=== PATIENT | female | born 1945 | race Caucasian/White ===

== ENCOUNTER 2025-04-02 21:57 | Inpatient (IN) ==
--- NOTE | 2025-04-02 22:19 | Emergency Department Note ---
Impression & Plan Dizziness, Diarrhea, Nausea & vomiting, Hyperglycemia, Hypoxia ED Provider Note ED Provider Note NAME: ANGELA KHANNA AGE:79 SEX: Female : 1945 ARRIVES VIA: EMS INFORMANT: Patient, EMS ED PROVIDER(s): Andressa England DO CHIEF COMPLAINT: Dizziness, nausea and vomiting HPI: This is an 79-year-old female who presents to the emergency department via EMS due to concern for dizziness along with nausea and vomiting. Patient states symptoms began earlier today. She denies any accompanying headache, blurred vision, fevers or chills. She states she has had minimal vomiting and it is mostly dry heaves. She denies any abdominal pain, chest pain, or difficulty breathing. She denies any known sick contacts. She states she takes no medications. She denies any change in recent bowel movements or with urination. EMS reported upon their arrival patient seemed flustered and scattered approximately down to her apartment, and they noted emesis and stool on the couch. Denies any recent illness or URI symptoms. She denies overt "spinning" but states she felt lightheaded and off balance. PAST MEDICAL HISTORY:See Below PAST SURGICAL HISTORY:See Below FAMILY HISTORY:See Below SOCIAL HISTORY:See Below HOME MEDICATIONS:See Below ALLERGIES:See Below VITALS:See Below PHYSICAL EXAMINATION: GENERAL: alert, well appearing, well nourished, no distress, non-toxic EYE EXAM: normal conjunctiva, PERRL and EOM's grossly intact, no nystagmus OROPHARYNX: no exudate, no erythema, lips, buccal mucosa, and tongue normal and mucous membranes are dry NECK: supple, no nuchal rigidity, no adenopathy, non-tender LUNGS: Decreased to auscultation. Normal chest wall mechanics, no w/r, coarse breath sounds b/l, worse in upper lobs HEART: no murmurs, S1 normal and S2 normal ABDOMEN: abdomen soft, non-tender, normo-active bowel sounds, no masses, no rebound or guarding. BACK: Back is symmetrical on inspection and there is no deformity, no midline tenderness SKIN: no rashes, petechiae, orbruising UPPER EXTREMITIES: upper extremities are grossly normal. FROM, nml pulses b/l. LOWER EXTREMITIES: No pitting edema. FROM, nml pulses b/l. NEURO EXAM: Normal sensorium, cranial nerves II-XII grossly intact, normal speech, no facial droop,nogross weakness of arms, no gross weakness of legs. Gross sensation intact. No ataxia. Vital Signs: reviewed and remarkable Differential Diagnosis: benign positional vertigo, dehydration, hypovolemia, anemia, tumor, hypoglycemia, electrolyte abnormalities, ICH, CVA, dysrhythmia, as well as others were entertained. MEDICAL DECISION MAKING: This is an 79-year-old female presents emergency department due to concern for dizziness, vomiting, diarrhea. She was afebrile and hemodynamically stable on arrival. She had a normal nonfocal neuroexam. Labs drawn and sent, IV established, EKG and CXR performed and interpreted at bedside, and patient placed on telemetry. Patient started on IV fluids and given IV Zofran for nausea. She did have slightly coarse breath sounds noted and is a former smoker, she was given a DuoNeb treatment additionally. Patient reported improvement in her nausea and dizziness with interventions here. Patient was noted to be mildly hypoxic into the upper 80s even after breathing treatment. She denied any recent URI symptoms. Given no obvious etiology with a negative chest x-ray and reassuring labs, and concern for likely underlying COPD given history of tobacco abuse, case discussed with the hospitalist team for further evaluation and management. Patient's other labs otherwise reassuring, no leukocytosis, no evidence of ANDREA, no significant electrolyte abnormalities. Patient denied any accompanying chest pain, EKG without any concerning findings. I do not suspect occult cardiac etiology of her symptoms at this time. I do not suspect occult HAT MARKER pathology such as CVA or ICH. Consultation(s): 0050: Discussed with Dr. Holley, [facility] hospitalist team, for additional evaluation and mgmt. ER Treatment Provided: See below Diagnostics Interpreted By Me: -ECG: Normal sinus at 91, first-degree AV block, leftward axis, normal intervals, nonspecific ST/T wave changes -Cardiac Monitoring: An order was placed for continuous cardiac monitoring. The monitor shows a rate of 96 with normal sinus rhythm. -Laboratory studies: As stated above and show below. -Imaging studies: X-ray Chest: A single view study of the chest was reviewed and was negative for cardiomegaly, focal infiltrate, effusion, pulmonary edema, or wide mediastinum. Triage Nursing Note Reviewed Prior/Outside Records Reviewed Past Med/Surg History Problem List (Updated 04/03/25 @ 00:42 by Andressa England DO) Hypoxia (Acute) Hyperglycemia (Acute) Nausea & vomiting (Acute) Diarrhea (Acute) Dizziness (Acute) Medical History No pertinent family history No pertinent past medical history Surgical History No pertinent past surgical history Social History Smoking Status: Former smoker Tobacco Type: Cigarettes Second Hand Exposure: No; Do You Dip or Chew Tobacco: No; Tobacco Cessation Education Requested by Patient: No Hx Alcohol Use: No Hx Substance Use: No Preferred Language: Divehi Communication Ability: Effective Rink Rat Required: No Beliefs That Will Affect Care: None Current Living Situation: Alone Other Information That Helps Us Care for You: No Feels Safe at Home: Yes Safety Concerns: Feels Safe At This Time Assistive Devices: Denture - Upper, Denture - Lower and Glasses Allergies Allergies Allergy/AdvReac Type Severity Reaction Status Date / Time No Known Allergies Allergy Unverified 04/03/25 04:04 Results & Data (ED) Vital Signs Vital Signs - 24 hr 04/03/25 00:00 04/03/25 01:00 Pulse Rate [Apical] 87 95 H Pulse Rhythm [Apical] Regular Pulse Strength [Apical] Normal Respiratory Rate 18 12 Respiratory Effort / Characteristics Non-Labored Spontaneous Non-Labored Respiratory Depth Normal Normal Respiratory Pattern Regular Regular Blood Pressure [Right Arm] 161/98 H 134/97 Blood Pressure Mean [Right Arm] 119 109 Blood Pressure Position [Right Arm] Lying Pulse Oximetry 100 95 Oxygen Delivery Method Nebulizer Nasal Cannula Oxygen Flow Rate 2 Laboratory Data 04/03/25 07:09 04/03/25 07:09 Lab Results 04/02/25 04/02/25 04/02/25 Range/Units 22:01 22:06 23:34 WBC 8.04 (4.8-10.8) K/ul RBC 3.96 L (4.20-5.40) M/uL Hgb 12.7 (12.0-16.0) g/dl POC Hgb 13.9 (12.0-16.0) g/dl Hct 40.3 (37.0-47.0) % POC Hct 41 (37-47) % MCV 101.8 H (80.0-100.0) fL MCH 32.1 (25.0-34.0) pg MCHC 31.5 L (32.0-36.0) g/dL RDW Std Deviation 53.4 H (36.4-46.3) fL RDW Coeff of Deloris 14.2 (11.5-14.5) % Plt Count 206 (130-400) K/uL MPV 10.8 (9.4-12.4) fL Immature Gran % (Auto) 0.5 % Neut % (Auto) 71.4 % Lymph % (Auto) 18.7 % [place] % (Auto) 7.3 % Eos % (Auto) 1.7 % Baso % (Auto) 0.4 % Neut # (Auto) 5.74 (1.40-6.50) K/uL Lymph # (Auto) 1.50 (1.20-3.40) K/uL [place] # (Auto) 0.59 (0.11-0.59) K/uL Eos # (Auto) 0.14 (0.00-0.50) K/uL Baso # (Auto) 0.03 (0.00-0.20) K/uL Immature Gran # (Auto) 0.04 (0.01-0.20) K/uL PT 11.1 (9.0-12.0) Seconds INR 1.1 (0.9-1.1) POC Sodium 138 (135-144) mmol/L Sodium 137 (136-145) mmol/L POC Potassium 3.5 (3.3-5.0) mmol/L Potassium 3.6 (3.5-5.1) mmol/L POC Chloride 99 L (101-112) mmol/L Chloride 100 (98-107) mmol/L Carbon Dioxide 27 (21-32) mmol/L POC Total CO2 25 (24-31) mmol/L Anion Gap 10 (3-11) POC Anion Gap 19.0 (16-25) mmol/L POC BUN 17 (7-18) mg/dl BUN 18 (6-23) mg/dl Creatinine 0.88 (0.6-1.2) mg/dl POC Creatinine 1.0 (0.6-1.3) mg/dl Est Cr Clr Drug Dosing 40.4 ml/min eGFR 65.98 BUN/Creatinine Ratio 20.5 H (10-20) Glucose 199 H (70-99(Fasting)) mg/dl POC Glucose (other) 197 H (70-99) mg/dl Calcium 9.3 (8.6-10.3) mg/dl POC Ioniz Calcium Lou 1.13 (1.12-1.32) mmol/l Magnesium 1.8 (1.7-2.4) mg/dl Total Bilirubin 0.6 (0.2-1.0) mg/dl AST 20 (13-39) U/L ALT 12 (7-52) U/L Alkaline Phosphatase 117 H (34-104) U/L Troponin I High Sens 5.9 (0-14) pg/ml Total Protein 7.5 (6.0-8.3) gm/dl Albumin 3.8 (3.4-5.0) gm/dl Globulin 3.7 (2.5-4.0) gm/dl Albumin/Globulin Ratio 1.0 (0.9-2) TSH 2.516 (0.300-4.500) uIu/ml Adenovirus (PCR) Not Detected (NotDetected) B. pertussis DNA (PCR) Not Detected (NotDetected) B.parapertussis DNA PCR Not Detected (NotDetected) C. pneumoniae DNA (PCR) Not Detected (NotDetected) Coronavirus OC43 (PCR) Not Detected (NotDetected) Coronavirus HKU1 (PCR) Not Detected (NotDetected) Coronavirus 229E (PCR) Not Detected (NotDetected) SARS-CoV-2 (PCR) Not Detected (NotDetected) Coronavirus NL63 (PCR) Not Detected (NotDetected) Human Metapneumovir PCR Not Detected (NotDetected) Influenza Type A (PCR) Not Detected (NotDetected) Influenza Type B (PCR) Not Detected (NotDetected) M. pneumoniae (PCR) Not Detected (NotDetected) Parainfluenza 1 (PCR) Not Detected (NotDetected) Parainfluenza 2 (PCR) Not Detected (NotDetected) Parainfluenza 3 (PCR) Not Detected (NotDetected) Parainfluenza 4 (PCR) Not Detected (NotDetected) RSV (PCR) Not Detected (NotDetected) Entero/Rhino (PCR) Not Detected (NotDetected) Administered Medications Albuterol (Albut/Ipratrop 3mg/0.5mg Neb 3 Ml Vial) 3 ml NEB QIDR RITA; Protocol Stop: 05/03/25 06:59 Last Admin: 04/03/25 19:37 Dose: 3 ml Documented By: Admin: 04/03/25 14:59 Dose: 3 ml Documented By: Admin: 04/03/25 11:47 Dose: 3 ml Documented By: Admin: 04/03/25 07:29 Dose: 3 ml Documented By: TIFFANIE Heparin Sodium (Porcine) (Heparin Sod 5,000 Unit/0.5 Ml Vial) 5,000 units SQ Q12 RITA Stop: 05/03/25 08:59 Last Admin: 04/03/25 20:25 Dose: 5,000 units Documented By: massimo Admin: 04/03/25 09:50 Dose: 5,000 units Documented By: DIVINA Ondansetron HCl (Ondansetron Inj 2 Mg/Ml 2 Ml Vial) 4 mg IV Q6H PRN PRN Reason: Nausea Stop: 05/03/25 03:50 Last Admin: 04/03/25 18:19 Dose: 4 mg Documented By: DIVINA Discontinued Medications Albuterol (Albut/Ipratrop 3mg/0.5mg Neb 3 Ml Vial) 3 ml NEB NOW STA; Protocol Stop: 04/02/25 23:44 Last Admin: 04/03/25 00:06 Dose: 3 ml Documented By: BRITTANY Sodium Chloride (Nss) 1,000 mls @ 125 mls/hr IV .Q8H RITA Stop: 04/05/25 22:14 Last Infusion: 04/03/25 03:50 Dose: Infused Documented By: faisal Admin: 04/02/25 22:23 Dose: 125 mls/hr Documented By: EDUARDO Sodium Chloride (Nss) 1,000 mls @ 80 mls/hr IV .[id number] [facility] Stop: 04/03/25 16:20 Last Infusion: 04/03/25 10:03 Dose: Infused Documented By: Admin: 04/03/25 04:20 Dose: 80 mls/hr Documented By: faisal Ioversol (Optiray 320 125ml) 112 ml IV ONCE ONE Stop: 04/03/25 11:22 Last Admin: 04/03/25 11:21 Dose: 112 ml Documented By: TED Lorazepam (Lorazepam 0.5 Mg Tab) 0.25 mg PO NOW STA Stop: 04/03/25 03:57 Last Admin: 04/03/25 04:19 Dose: 0.25 mg Documented By: faisal Miscellaneous Information (Patient's Allergy Info Needs Entered) 1 each N/A Q30M STA Stop: 04/03/25 03:53 Last Admin: 04/03/25 04:07 Dose: 1 each Documented By: faisal Ondansetron HCl (Ondansetron Inj 2 Mg/Ml 2 Ml Vial) 4 mg IV NOW STA Stop: 04/02/25 22:08 Last Admin: 04/02/25 22:26 Dose: 4 mg Documented By: EMB Imaging Data Radiologist's Impression: Chest X-Ray 04/02/25 22:07 Exam(s): XR CXR 1 VIEW EXAM: XR Chest, 1 View CLINICAL HISTORY: Reason for exam: cough. TECHNIQUE: Frontal view of the chest. COMPARISON: No relevant prior studies available. FINDINGS: There is a poor inspiratory effort. Lungs: There is prominence of the interstitial markings.. Pleural space: No pleural effusion is noted.. No pneumothorax. Heart: The heart is top normal in size.. Mediastinum: There is uncoiling of thoracic aorta.. Bones/joints: There are degenerative changes in the spine.. IMPRESSION: Poor inspiratory effort. There is prominence of the interstitial markings which may be chronic in nature. Recommend old film comparison. Electronically signed by: Rosalino Melissa MD 04/02/25 23:[address] 04/02/25 22:07 Exam(s): CT HEAD Without Contrast EXAM: CT Head Without Intravenous Contrast CLINICAL HISTORY: Reason for exam: dizzy, nausea/vomiting. TECHNIQUE: Axial computed tomography images of the head/brain without intravenous contrast. CTDI is 61.99 mGy and DLP is 961.59 mGy-cm. Automated exposure control was utilized for the study. A dose lowering technique was utilized adhering to the principles of ALARA. COMPARISON: No relevant prior studies available. FINDINGS: Brain: No acute intracranial hemorrhage There is decreased attenuation within the white matter.. Ventricles: There is prominence of the ventricular system with deepening of the sulci consistent with cortical and central atrophy. Bones/joints: Unremarkable. No acute fracture. Soft tissues: Unremarkable. Sinuses: Unremarkable as visualized. No acute sinusitis. Mastoid air cells: Unremarkable as visualized. No mastoid effusion. IMPRESSION: Atrophy. Nonspecific white matter disease. If further evaluation is clinically necessary, consider correlation with MRI Electronically signed by: Rosalino Melissa MD 04/02/25 23:30 PM Discharge Plan Visit Data Chief Complaint: Dizziness Stated Complaint: Dizziness, nausea ED Provider: Andressa England Discharge Problem: Dizziness, Diarrhea, Nausea & vomiting, Hyperglycemia, Hypoxia Patient Disposition: Admitted As Inpatient Condition: Fair Discharge Instructions Interventions: ED Discharge Assessment Last Done: 04/03/25 03:30
[2025-04-02] MEDS: SODIUM CHLORIDE 0.9% 1,000 ML IV SCH (22:23)
[2025-04-02] MEDS: ONDANSETRON INJ 2 MG/ML 2 ML VIAL IV STA (22:26)
[2025-04-02 22:28] LABS: Hematocrit (blood only) 40.3 % (37.0-47.0); Hemoglobin 12.7 g/dl (12.0-16.0); Immature Granulocytes # (auto) 0.04 K/uL (0.01-0.20); Immature Granulocytes % (auto) 0.5 %; Mean Corpuscular Hemoglobin 32.1 pg (25.0-34.0); Mean Corpuscular Volume 101.8 fL (80.0-100.0); Platelet Count 206 K/uL (130-400); RDW Standard Deviation 53.4 fL (36.4-46.3); Red Blood Count 3.96 M/uL (4.20-5.40); White Blood Count 8.04 K/ul (4.8-10.8)
[2025-04-02 22:44] LABS: Alanine Aminotransferase 12.0 U/L (7-52); Albumin Globulin Ratio 1.0 (0.9-2); Albumin Level 3.8 gm/dl (3.4-5.0); Alkaline Phosphatase 117.0 U/L (34-104); Anion Gap 10.0 (3-11); Bilirubin,Total 0.6 mg/dl (0.2-1.0); Blood Urea Nitrogen 18.0 mg/dl (6-23); Calcium 9.3 mg/dl (8.6-10.3); Carbon Dioxide 27.0 mmol/L (21-32); Chloride 100.0 mmol/L (98-107); Creatinine Clr Calc Pharmacy 40.4 ml/min; Globulin 3.7 gm/dl (2.5-4.0); Glucose 199.0 mg/dl (70-99(Fasting)); Magnesium 1.8 mg/dl (1.7-2.4); Potassium 3.6 mmol/L (3.5-5.1); Sodium 137.0 mmol/L (136-145); Total Protein 7.5 gm/dl (6.0-8.3)
[2025-04-02 23:01] LABS: Thyroid Stimulating Hormone 2.516 uIu/ml (0.300-4.500)
[2025-04-02 23:27] LABS: INR 1.1 (0.9-1.1); Prothrombin Time 11.1 Seconds (9.0-12.0)
--- NOTE | 2025-04-02 23:29 | XRay Report ---
Exam(s): XR CXR 1 VIEW EXAM: XR Chest, 1 View CLINICAL HISTORY: Reason for exam: cough. TECHNIQUE: Frontal view of the chest. COMPARISON: No relevant prior studies available. FINDINGS: There is a poor inspiratory effort. Lungs: There is prominence of the interstitial markings.. Pleural space: No pleural effusion is noted.. No pneumothorax. Heart: The heart is top normal in size.. Mediastinum: There is uncoiling of thoracic aorta.. Bones/joints: There are degenerative changes in the spine.. IMPRESSION: Poor inspiratory effort. There is prominence of the interstitial markings which may be chronic in nature. Recommend old film comparison. Electronically signed by: Rosalino Melissa MD 04/02/25 23:27 PM
--- NOTE | 2025-04-02 23:31 | CT Scan Report ---
Exam(s): CT HEAD Without Contrast EXAM: CT Head Without Intravenous Contrast CLINICAL HISTORY: Reason for exam: dizzy, nausea/vomiting. TECHNIQUE: Axial computed tomography images of the head/brain without intravenous contrast. CTDI is 61.99 mGy and DLP is 961.59 mGy-cm. Automated exposure control was utilized for the study. A dose lowering technique was utilized adhering to the principles of ALARA. COMPARISON: No relevant prior studies available. FINDINGS: Brain: No acute intracranial hemorrhage There is decreased attenuation within the white matter.. Ventricles: There is prominence of the ventricular system with deepening of the sulci consistent with cortical and central atrophy. Bones/joints: Unremarkable. No acute fracture. Soft tissues: Unremarkable. Sinuses: Unremarkable as visualized. No acute sinusitis. Mastoid air cells: Unremarkable as visualized. No mastoid effusion. IMPRESSION: Atrophy. Nonspecific white matter disease. If further evaluation is clinically necessary, consider correlation with MRI Electronically signed by: Rosalino Melissa MD 04/02/25 23:30 PM
[2025-04-03] MEDS: ALBUT/IPRATROP 3MG/0.5MG NEB 3 ML VIAL NEB STA (00:06)
[2025-04-03 00:30] LABS: Chlamydia pneumoniae PCR Not Detected (NotDetected); Coronavirus 229E PCR Not Detected (NotDetected); Coronavirus CoV-2 (COVID19)PCR Not Detected (NotDetected); Coronavirus HKU1 PCR Not Detected (NotDetected); Coronavirus NL63 PCR Not Detected (NotDetected); Coronavirus OC43PCR Not Detected (NotDetected); Human Metapneumovirus PCR Not Detected (NotDetected); Parainfluenza Virus 1 PCR Not Detected (NotDetected); Parainfluenza Virus 2 PCR Not Detected (NotDetected); Parainfluenza Virus 3 PCR Not Detected (NotDetected); Parainfluenza Virus 4 PCR Not Detected (NotDetected); Respiratory Syncytial VirusPCR Not Detected (NotDetected); Rhinovirus/Enterovirus PCR Not Detected (NotDetected)
--- NOTE | 2025-04-03 02:02 | History & Physical Report ---
Date of Service April 03, 2025 Assessment & Plan (1) Dizziness: Plan: 79-year-old female with past medical history significant for osteoarthritis, generalized anxiety disorder not seeing doctors for many years and not taking any medications comes because of dizziness and nausea. Patient lives alone. Says she ambulates without support. Today felt very dizzy and nauseous . It seems subsided but came back. When nausea and dizziness returned it was very s evere and she could not get up and move.. And she also had an episode of diarrhea. She called ambulance and came to the hospital. Currently she is feeling better. Nausea has improved. Currently denies any dizziness. Did not ambulate yet. But in the ER her oxygen saturation were dropping to 86%. On oxygen she is saturating okay. Patient has history of smoking. She says she smoked more than 1 pack a day for about 55 years and quit smoking about 6 to 7 years ago. No fevers. No headache. No blurred visions or double vision. No runny nose or sore throat. Appetite is down today. Denies any chest pain or shortness of breath. No cough. No abdominal pain. Micturating okay. Currently hemodynamics are okay. Patient states she has 2 daughters but says she is estranged and not in contact with them. Dizziness Nausea CT head is okay Currently symptoms seems improved If recurs will get CTA head and neck and MRI and consult neurology IV fluids Orthostatics Will follow UA Monitor meds/telemetry PT OT prior to discharge Hypoxia Was 86% on room air Chest x-ray okay Will follow D-dimer Mild occasional wheezing on exam History of tobacco abuse Respiratory BioFire negative Possible underlying COPD Nebs around the clock and as needed 2 steps prior to discharge DVT prophylaxis Heparin subcu Disposition Med/telemetry Full code. History of Present Illness Chief Complaint: Dizziness and nausea Primary Care Provider: NO PCP 79-year-old female with past medical history significant for osteoarthritis, generalized anxiety disorder not seeing doctors for many years and not taking any medications comes because of dizziness and nausea. Patient lives alone. Says she ambulates without support. Today felt very dizzy and nauseous . It seems subsided but came back. When nausea and dizziness returned it was very se perez and she could not get up and move.. And she also had an episode of diarrhea. She called ambulance and came to the hospital. Currently she is feeling better. Nausea has improved. Currently denies any dizziness. Did not ambulate yet. But in the ER her oxygen saturation were dropping to 86%. On oxygen she is saturating okay. Patient has history of smoking. She says she smoked more than 1 pack a day for about 55 years and quit smoking about 6 to 7 years ago. No fevers. No headache. No blurred visions or double vision. No runny nose or sore throat. Appetite is down today. Denies any chest pain or shortness of breath. No cough. No abdominal pain. Micturating okay. Currently hemodynamics are okay. Patient states she has 2 daughters but says she is estranged and not in contact with them. Past medical history. As mentioned above. Past surgical history. Denies any surgeries. Social history. Quit smoking about 6 to 7 years ago. Smoked more than a pack a day for about 55 years.. Currently not drinking alcohol. Family history. Brother had colon cancer per records. Allergies Allergy/AdvReac Type Severity Reaction Status Date / Time No Known Allergies Allergy Unverified 04/03/25 04:04 Past Med/Surg History Problem List (Updated 04/03/25 @ 00:42 by Andressa England DO) Hypoxia (Acute) Hyperglycemia (Acute) Nausea & vomiting (Acute) Diarrhea (Acute) Dizziness (Acute) Medical History No pertinent family history No pertinent past medical history Surgical History No pertinent past surgical history Social History Smoking Status: Former smoker Tobacco Type: Cigarettes Second Hand Exposure: No; Do You Dip or Chew Tobacco: No; Tobacco Cessation Education Requested by Patient: No Hx Alcohol Use: No Hx Substance Use: No Preferred Language: Taiwanese Communication Ability: Effective Senior Maintenance Mechanic Required: No Beliefs That Will Affect Care: None Current Living Situation: Alone Other Information That Helps Us Care for You: No Feels Safe at Home: Yes Safety Concerns: Feels Safe At This Time Assistive Devices: Denture - Upper, Denture - Lower and Glasses Review of Systems Review of Systems: All systems reviewed & are unremarkable except as noted in HPI & below Physical Exam Physical Exam: General- Not in distress Head- atraumatic Eyes- PERRL. ENT- oropharynx clear Neck- supple, no JVD. Lungs- clear to auscultation mild occasional wheezing, no crackles Heart- regular rhythm; no murmur, no gallop. Abdomen- normal bowel sounds, soft, nontender, no distension Extremities- no pretibial edema, no erythema seen Neuro- alert, oriented PERRL, no facial palsy; no dysarthria; motor 5/5 bilaterally; no pronator drift, coordination of movements normal, sensations and position sense intact Results & Data Results & Data Vital Signs (Past 12 Hours) Vital Signs Temp Pulse Pulse Resp BP BP Pulse Ox 04/03/25 00:00 87 18 161/98 H 100 04/02/25 22:45 86 L 04/02/25 22:15 87 L 04/02/25 22:11 97 H 04/02/25 22:10 96 H 16 143/105 H 89 L 04/02/25 22:10 36.6 C 96 H 16 143/105 H 89 L O2 Del Method O2 Flow Rate 04/03/25 00:00 Nebulizer 04/02/25 22:45 Room Air, Nasal Cannula 0 04/02/25 22:15 Room Air, Nasal Cannula 0 04/02/25 22:11 04/02/25 22:10 Room Air 04/02/25 22:10 Room Air Diagnostic Findings Laboratory Results WBC 8.04 K/ul (4.8-10.8) 04/02/25 22:01 RBC 3.96 M/uL (4.20-5.40) L 04/02/25 22:01 Hgb 12.7 g/dl (12.0-16.0) 04/02/25 22:01 POC Hgb 13.9 g/dl (12.0-16.0) 04/02/25 22:06 Hct 40.3 % (37.0-47.0) 04/02/25 22:01 POC Hct 41 % (37-47) 04/02/25 22:06 MCV 101.8 fL (80.0-100.0) H 04/02/25 22:01 MCH 32.1 pg (25.0-34.0) 04/02/25 22:01 MCHC 31.5 g/dL (32.0-36.0) L 04/02/25 22: RDW Std Deviation 53.4 fL (36.4-46.3) H 04/02/25 22: RDW Coeff of Deloris 14.2 % (11.5-14.5) 04/02/25 22: Plt Count 206 K/uL (130-400) 04/02/25 22: MPV 10.8 fL (9.4-12.4) 04/02/25 22: Immature Gran % (Auto) 0.5 % 04/02/25 22: Neut % (Auto) 71.4 % 04/02/25 22: Lymph % (Auto) 18.7 % 04/02/25 22: [place] % (Auto) 7.3 % 04/02/25 22: Eos % (Auto) 1.7 % 04/02/25 22: Baso % (Auto) 0.4 % 04/02/25 22: Neut # (Auto) 5.74 K/uL (1.40-6.50) 04/02/25 22: Lymph # (Auto) 1.50 K/uL (1.20-3.40) 04/02/25 22: [place] # (Auto) 0.59 K/uL (0.11-0.59) 04/02/25 22: Eos # (Auto) 0.14 K/uL (0.00-0.50) 04/02/25 22:01 Baso # (Auto) 0.03 K/uL (0.00-0.20) 04/02/25 22: Immature Gran # (Auto) 0.04 K/uL (0.01-0.20) 04/02/25 22: PT 11.1 Seconds (9.0-12.0) 04/02/25 22: INR 1.1 (0.9-1.1) 04/02/25 22: POC Sodium 138 mmol/L (135-144) 04/02/25 22: Sodium 137 mmol/L (136-145) 04/02/25 22:01 POC Potassium 3.5 mmol/L (3.3-5.0) 04/02/25 22: Potassium 3.6 mmol/L (3.5-5.1) 04/02/25 22:01 POC Chloride 99 mmol/L (101-112) L 04/02/25 22:06 Chloride 100 mmol/L (98-107) 04/02/25 22:01 Carbon Dioxide 27 mmol/L (21-32) 04/02/25 22:01 POC Total CO2 25 mmol/L (24-31) 04/02/25 22:06 Anion Gap 10 (3-11) 04/02/25 22:01 POC Anion Gap 19.0 mmol/L (16-25) 04/02/25 22:06 POC BUN 17 mg/dl (7-18) 04/02/25 22:06 BUN 18 mg/dl (6-23) 04/02/25 22: Creatinine 0.88 mg/dl (0.6-1.2) 04/02/25 22:01 POC Creatinine 1.0 mg/dl (0.6-1.3) 04/02/25 22:06 Est Cr Clr Drug Dosing 40.4 ml/min 04/02/25 22: eGFR 65.98 04/02/25 22: BUN/Creatinine Ratio 20.5 (10-20) H 04/02/25 22:01 Glucose 199 mg/dl (70-99(Fasting)) H 04/02/25 22:01 POC Glucose (other) 197 mg/dl (70-99) H 04/02/25 22:06 Calcium 9.3 mg/dl (8.6-10.3) 04/02/25 22:01 POC Ioniz Calcium Lou 1.13 mmol/l (1.12-1.32) 04/02/25 22:06 Magnesium 1.8 mg/dl (1.7-2.4) 04/02/25 22:01 Total Bilirubin 0.6 mg/dl (0.2-1.0) 04/02/25 22: AST 20 U/L (13-39) 04/02/25 22: ALT 12 U/L (7-52) 04/02/25 22:01 Alkaline Phosphatase 117 U/L (34-104) H 04/02/25 22:01 Troponin I High Sens 5.9 pg/ml (0-14) 04/02/25 22: Total Protein 7.5 gm/dl (6.0-8.3) 04/02/25 22:01 Albumin 3.8 gm/dl (3.4-5.0) 04/02/25 22:01 Globulin 3.7 gm/dl (2.5-4.0) 04/02/25 22:01 Albumin/Globulin Ratio 1.0 (0.9-2) 04/02/25 22:01 TSH 2.516 uIu/ml (0.300-4.500) 04/02/25 22:01 Adenovirus (PCR) Not Detected (NotDetected) 04/02/25 23:34 B. pertussis DNA (PCR) Not Detected (NotDetected) 04/02/25 23:34 B.parapertussis DNA PCR Not Detected (NotDetected) 04/02/25 23:34 C. pneumoniae DNA (PCR) Not Detected (NotDetected) 04/02/25 23:34 Coronavirus OC43 (PCR) Not Detected (NotDetected) 04/02/25 23:34 Coronavirus HKU1 (PCR) Not Detected (NotDetected) 04/02/25 23:34 Coronavirus 229E (PCR) Not Detected (NotDetected) 04/02/25 23:34 SARS-CoV-2 (PCR) Not Detected (NotDetected) 04/02/25 23:34 Coronavirus NL63 (PCR) Not Detected (NotDetected) 04/02/25 23:34 Human Metapneumovir PCR Not Detected (NotDetected) 04/02/25 23:34 Influenza Type A (PCR) Not Detected (NotDetected) 04/02/25 23:34 Influenza Type B (PCR) Not Detected (NotDetected) 04/02/25 23:34 M. pneumoniae (PCR) Not Detected (NotDetected) 04/02/25 23:34 Parainfluenza 1 (PCR) Not Detected (NotDetected) 04/02/25 23:34 Parainfluenza 2 (PCR) Not Detected (NotDetected) 04/02/25 23:34 Parainfluenza 3 (PCR) Not Detected (NotDetected) 04/02/25 23:34 Parainfluenza 4 (PCR) Not Detected (NotDetected) 04/02/25 23:34 RSV (PCR) Not Detected (NotDetected) 04/02/25 23:34 Entero/Rhino (PCR) Not Detected (NotDetected) 04/02/25 23:34 Impressions Chest X-Ray 04/02/25 22:07 Exam(s): XR CXR 1 VIEW EXAM: XR Chest, 1 View CLINICAL HISTORY: Reason for exam: cough. TECHNIQUE: Frontal view of the chest. COMPARISON: No relevant prior studies available. FINDINGS: There is a poor inspiratory effort. Lungs: There is prominence of the interstitial markings.. Pleural space: No pleural effusion is noted.. No pneumothorax. Heart: The heart is top normal in size.. Mediastinum: There is uncoiling of thoracic aorta.. Bones/joints: There are degenerative changes in the spine.. IMPRESSION: Poor inspiratory effort. There is prominence of the interstitial markings which may be chronic in nature. Recommend old film comparison. Electronically signed by: Rosalino Melissa MD 04/02/25 23:[address] 04/02/25 22:07 Exam(s): CT HEAD Without Contrast EXAM: CT Head Without Intravenous Contrast CLINICAL HISTORY: Reason for exam: dizzy, nausea/vomiting. TECHNIQUE: Axial computed tomography images of the head/brain without intravenous contrast. CTDI is 61.99 mGy and DLP is 961.59 mGy-cm. Automated exposure control was utilized for the study. A dose lowering technique was utilized adhering to the principles of ALARA. COMPARISON: No relevant prior studies available. FINDINGS: Brain: No acute intracranial hemorrhage There is decreased attenuation within the white matter.. Ventricles: There is prominence of the ventricular system with deepening of the sulci consistent with cortical and central atrophy. Bones/joints: Unremarkable. No acute fracture. Soft tissues: Unremarkable. Sinuses: Unremarkable as visualized. No acute sinusitis. Mastoid air cells: Unremarkable as visualized. No mastoid effusion. IMPRESSION: Atrophy. Nonspecific white matter disease. If further evaluation is clinically necessary, consider correlation with MRI Electronically signed by: Rosalino Melissa MD 04/02/25 23:30 PM ECG Additional Comments: ECG. Sinus rhythm with first-degree AV block rate of 91. Left axis deviation. Incomplete right bundle branch block. Possible anterior infarct age undetermined. QTc 472 Code Status & VTE Plan VTE Prophylaxis Plan VTE Prophylaxis will be ordered: Yes
[2025-04-03] MEDS ORDERED: NITROGLYCERIN SL 0.4 MG/TAB TAB SL PRN (03:51)
[2025-04-03] MEDS ORDERED: ACETAMINOPHEN 325 MG TAB PO PRN (03:51)
[2025-04-03] MEDS ORDERED: ALBUT/IPRATROP 3MG/0.5MG NEB 3 ML VIAL NEB PRN (03:51)
[2025-04-03] MEDS: LORazepam 0.5 MG TAB PO STA (04:19)
[2025-04-03] MEDS: SODIUM CHLORIDE 0.9% 1,000 ML IV SCH (04:20)
[2025-04-03] MEDS: ALBUT/IPRATROP 3MG/0.5MG NEB 3 ML VIAL NEB SCH (07:29)
[2025-04-03 07:36] LABS: Hematocrit (blood only) 37.9 % (37.0-47.0); Hemoglobin 12.0 g/dl (12.0-16.0); Immature Granulocytes # (auto) 0.03 K/uL (0.01-0.20); Immature Granulocytes % (auto) 0.5 %; Mean Corpuscular Hemoglobin 32.2 pg (25.0-34.0); Mean Corpuscular Volume 101.6 fL (80.0-100.0); Platelet Count 193 K/uL (130-400); RDW Standard Deviation 53.8 fL (36.4-46.3); Red Blood Count 3.73 M/uL (4.20-5.40); White Blood Count 6.65 K/ul (4.8-10.8)
[2025-04-03 07:55] LABS: Anion Gap 5.0 (3-11); Blood Urea Nitrogen 13.0 mg/dl (6-23); Calcium 8.6 mg/dl (8.6-10.3); Carbon Dioxide 29.0 mmol/L (21-32); Chloride 105.0 mmol/L (98-107); Creatinine Clr Calc Pharmacy 52.8 ml/min; Glucose 107.0 mg/dl (70-99(Fasting)); Magnesium 1.9 mg/dl (1.7-2.4); Potassium 4.1 mmol/L (3.5-5.1); Sodium 139.0 mmol/L (136-145)
[2025-04-03 08:41] LABS: Hemoglobin A1C 5.3 % (4.5-5.6)
[2025-04-03] MEDS: HEPARIN SOD 5,000 UNIT/0.5 ML VIAL SQ SCH (09:50)
[2025-04-03 09:52] LABS: Appearance Urine Clear (Clear); Glucose Urine UA Negative (Negative)
[2025-04-03] MEDS: OPTIRAY 320 125ml IV ONE (11:21)
--- NOTE | 2025-04-03 12:06 | CT Scan Report ---
CT ANGIOGRAM OF THE CHEST CLINICAL HISTORY: Shortness of breath. Evaluate for pulmonary embolus. COMPARISON STUDY: Chest radiograph April 02, 2025. TECHNIQUE: Following the IV administration of 112 cc of Optiray 320, CT angiogram of the chest was pe rformed from the upper abdomen to the thoracic inlet utilizing the pulmonary embolus protocol. Images are reviewed in the axial, sagittal, and coronal planes. 3-D MIPS images are created and assessed. I V contrast was administered without complication. A dose lowering technique was utilized adhering to the principles of ALARA. CT DOSE: 2008.82 mGy.cm FINDINGS: No pulmonary emboli are identified. The heart is moderately enlarged. There is moderate aor tic valvular calcification. Ascending aorta is mildly dilated, measuring 4 cm at the level the main p ulmonary artery. There is extensive coronary artery calcification. No pericardial effusion. No pneumo thorax or pleural effusion is present. There is no consolidation to suggest pneumonia. Moderate upper lobe predominant emphysema is present. Subpleural biapical densities favor scarring. There is mild d iffuse subpleural reticulation. There is no honeycombing. No suspicious pulmonary nodules are identif ied. The abdomen and pelvis CT will be reported separately. There is an old mild T12 compression frac ture. IMPRESSION: 1. No pulmonary emboli identified. 2. No acute intrathoracic findings. 3. Moderate cardiomegaly and extensive coronary artery calcification. 4. Emphysema. Subpleural reticulation which may represent superimposed interstitial lung disease. No consolidation to suggest pneumonia. ACT 112: Negative or not required by law. Electronically signed by: Joshua Mike M.D. 04/03/2025 12:03 PM
--- NOTE | 2025-04-03 12:10 | CT Scan Report ---
CT OF THE ABDOMEN AND PELVIS WITHOUT CONTRAST CLINICAL HISTORY: Nausea and vomiting. COMPARISON STUDY: No previous studies for comparison. TECHNIQUE: Axial images of the abdomen and pelvis were obtained without IV contrast. Images were revi ewed in the axial, sagittal, and coronal planes. Automated exposure control was utilized for the deborah dy. A dose lowering technique was utilized adhering to the principles of ALARA. FINDINGS: Please note that the chest CT will be reported separately. There is an old mild T12 petrona verena fracture. No renal, ureteral or bladder calculi are present. There is no hydronephrosis. Evaluat ion of the remainder of the abdomen and pelvis is suboptimal on this unenhanced exam. Water attenuati on 4.6 cm left renal lesion favors a cyst. Unenhanced images of the liver, spleen, adrenal glands and pancreas are unremarkable. The infrarenal abdominal aorta is ectatic, measuring 2.5 cm in caliber. C aliber of small and large bowel is normal. There is extensive colonic diverticulosis. No evidence for acute diverticulitis. The appendix is normal. No bowel wall thickening is evident on unenhanced exam . There is a metallic curvilinear density within the endometrial cavity. Tiny gallstone within the ga llbladder. No evidence for acute cholecystitis. IMPRESSION: 1. No acute process within the abdomen or pelvis on unenhanced exam. 2. Extensive colonic diverticulosis. No evidence for acute diverticulitis. 3. Curvilinear radiodensity within the endometrial cavity. This is indeterminate but iatrogenic and c orrelation with procedural history is recommended. ACT 112: Negative or not required by law. Electronically signed by: Joshua Mike M.D. 04/03/2025 12:08 PM
[2025-04-03] MEDS: ONDANSETRON INJ 2 MG/ML 2 ML VIAL IV PRN (18:19)
[2025-04-04 08:09] LABS: Hematocrit (blood only) 38.5 % (37.0-47.0); Hemoglobin 12.2 g/dl (12.0-16.0); Mean Corpuscular Hemoglobin 31.9 pg (25.0-34.0); Mean Corpuscular Volume 100.8 fL (80.0-100.0); Platelet Count 192 K/uL (130-400); RDW Standard Deviation 54.6 fL (36.4-46.3); Red Blood Count 3.82 M/uL (4.20-5.40); White Blood Count 5.66 K/ul (4.8-10.8)
[2025-04-04 09:01] LABS: Anion Gap 8.0 (3-11); Blood Urea Nitrogen 9.0 mg/dl (6-23); Calcium 9.1 mg/dl (8.6-10.3); Carbon Dioxide 28.0 mmol/L (21-32); Chloride 103.0 mmol/L (98-107); Creatinine Clr Calc Pharmacy 48.8 ml/min; Glucose 102.0 mg/dl (70-99(Fasting)); Magnesium 2.0 mg/dl (1.7-2.4); Potassium 4.0 mmol/L (3.5-5.1); Sodium 139.0 mmol/L (136-145)
--- NOTE | 2025-04-04 12:13 | Hospitalist Progress Note ---
Date of Service April 04, 2025 Assessment & Plan (1) Dizziness: Plan: 79-year-old female with past medical history significant for osteoarthritis, generalized anxiety disorder not seeing doctors for many years and not taking any medications comes because of dizziness and nausea. Patient lives alone. Says she ambulates without support. Today felt very dizzy and nauseous . It seems subsided but came back. When nausea and dizziness returned it was very severe and she could not get up and move.. And she also had an episode of diarrhea. She called ambulance and came to the hospital. Currently she is feeling better. Nausea has improved. Currently denies any dizziness. Did not ambulate yet. But in the ER her oxygen saturation were dropping to 86%. On oxygen she is saturating okay. Patient has history of smoking. She says she smoked more than 1 pack a day for about 55 years and quit smoking about 6 to 7 years ago. No fevers. No headache. No blurred visions or double vision. No runny nose or sore throat. Appetite is down today. Denies any chest pain or shortness of breath. No cough. No abdominal pain. Micturating okay. Currently hemodynamics are okay. Patient states she has 2 daughters but says she is estranged and not in contact with them. Dizziness Nausea (found emesis and stool on couch when pt found at home) CT head negat. Currently symptoms seems improved however pt reports not eating anything in several days and did not want to eat this AM either, she plans to try for lunch If recurs will get CTA head and neck and MRI and consult neurology IV fluids Orthostatics UA - negative CT abd./pelvis - 1. No acute process within the abdomen or pelvis on unenhanced exam.2. Extensive colonic diverticulosis. No evidence for acute diverticulitis.3. Curvilinear radiodensity within the endometrial cavity. This is indeterminate but iatrogenic and correlation with procedural history is recommended. Stool pcr, c. diff - ordered - pending collection Monitor meds/telemetry PT OT prior to discharge Hypoxia Was 86% on room air Chest x-ray - interstitial markings which may be chronic in nature D-dimer elevated at 1850 Mild occasional wheezing on exam History of tobacco abuse, Possible underlying COPD Respiratory BioFire negative Emphysema on CT, will need outpt LFTs, pulm. follow up Nebs around the clock and as needed CT PE - No pulmonary emboli are identified. The heart is moderately enlarged. There is moderate aortic valvular calcification. Ascending aorta is mildly dilated, measuring 4 cm at the level the main pulmonary artery. There is extensive coronary artery calcification. No pericardial effusion. No pneumothorax or pleural effusion is present. There is no consolidation to suggest pneumonia. Moderate upper lobe predominant emphysema is present. Subpleural biapical densities favor scarring. There is mild diffuse subpleural reticulation. There is no honeycombing. No suspicious pulmonary nodules are identified. The abdomen and pelvis CT will be reported separately. There is an old mild T12 compression fracture. LE doppler - pending 2 steps prior to discharge This AM Pt went to bathroom w/o oxygen. Became severely hypoxic, to 70s%, and extremely dyspneic. Received breathing treatment. Currently back on 2L of suppl. O2, cont to closely monitor on tele. Will also obtain echo DVT prophylaxis Heparin subcu Disposition Med/telemetry Full code. Admission and Anticipated Discharge Date Admission Date: April 03, 2025 Subjective Pt seen in follow up Presented for dizziness, found to be hypoxic. Per chart review - emesis and stool found on pt's couch when they came for the pt. Currently pt is sitting up in bed in NAD on 2L of suppl. O2. She says she does not know how it happened but she is aware she had to be all cleaned up when she came to the hospital. Says she did not eat anything yesterday (in the hospital) or even for at least 2 days prior to coming to hospital. Says she does not follow with any family physician and last time she was seen by one - was in 2019 to get her covid shot. Currently says she plans to eat something for lunch, she did not feel like eating anything this AM. Also notified by RN that pt went to bathroom without oxygen and she became profoundly hypoxic and very short of breath. received breathing treatment and feeling ok now. CT PE obtained on admission - negat. for PE, negat. for PNA, + for emphysema. Pt states she is a former smoker. Ordered stool pcr - so far uncollected. Ct abd pelvis - negat. Review of Systems Review of Systems: All systems reviewed & are unremarkable except as noted in Subjective Physical Exam Physical Exam: General- WD/WN F in NAD Head- atraumatic Eyes- PERRL. Neck- supple, no JVD. Lungs- clear to auscultation mild occasional wheezing, no crackles Heart- regular rhythm; no murmur, no gallop. Abdomen- normal bowel sounds, soft, nontender, no distension Extremities- no pretibial edema, no erythema seen Neuro- alert, oriented, answers appropriately, speech fluent, moves extremities Results & Data Results & Data Vital Signs (Past 12 Hours) Vital Signs Temp Pulse Pulse Resp BP BP Pulse Ox 04/04/25 11:37 122 H 28 H 70 L 04/04/25 11:29 36.4 C L 78 18 118/69 91 04/04/25 07:33 37.0 C 73 18 158/78 H 93 04/04/25 07:25 69 04/04/25 07:23 81 16 97 04/04/25 03:56 36.7 C 72 20 161/67 H 96 O2 Del Method O2 Flow Rate 04/04/25 11:37 Room Air 04/04/25 11:29 Room Air 04/04/25 07:33 Nasal Cannula 2 04/04/25 07:25 04/04/25 07:23 Nasal Cannula 2 04/04/25 03:56 Nasal Cannula 2 Laboratory Results 04/04/25 Range/Units 07:43 WBC 5.66 (4.8-10.8) K/ul RBC 3.82 L (4.20-5.40) M/uL Hgb 12.2 (12.0-16.0) g/dl Hct 38.5 (37.0-47.0) % MCV 100.8 H (80.0-100.0) fL MCH 31.9 (25.0-34.0) pg MCHC 31.7 L (32.0-36.0) g/dL RDW Std Deviation 54.6 H (36.4-46.3) fL RDW Coeff of Deloris 14.6 H (11.5-14.5) % Plt Count 192 (130-400) K/uL MPV 10.6 (9.4-12.4) fL Sodium 139 (136-145) mmol/L Potassium 4.0 (3.5-5.1) mmol/L Chloride 103 (98-107) mmol/L Carbon Dioxide 28 (21-32) mmol/L Anion Gap 8 (3-11) BUN 9 (6-23) mg/dl Creatinine 0.75 (0.6-1.2) mg/dl Est Cr Clr Drug Dosing 48.8 ml/min eGFR 79.93 BUN/Creatinine Ratio 12.0 (10-20) Glucose 102 H (70-99(Fasting)) mg/dl Calcium 9.1 (8.6-10.3) mg/dl Phosphorus 3.0 (2.5-4.9) mg/dl Magnesium 2.0 (1.7-2.4) mg/dl Medications Administered Current Inpatient Medications Acetaminophen (Acetaminophen 325 Mg Tab) 650 mg PO Q4H PRN PRN Reason: Pain or Fever Stop: 05/03/25 03:50 Albuterol (Albut/Ipratrop 3mg/0.5mg Neb 3 Ml Vial) 3 ml NEB QIDR RITA; Protocol Stop: 05/03/25 06:59 Last Admin: 04/04/25 11:37 Dose: 3 ml Albuterol (Albut/Ipratrop 3mg/0.5mg Neb 3 Ml Vial) 3 ml NEB Q6R PRN; Protocol PRN Reason: Shortness Of Breath Or Wheezing Stop: 05/03/25 03:50 Heparin Sodium (Porcine) (Heparin Sod 5,000 Unit/0.5 Ml Vial) 5,000 units SQ Q12 RITA Stop: 05/03/25 08:59 Last Admin: 04/04/25 11:20 Dose: 5,000 units Thiamine HCl 200 mg/ Sodium (Chloride) 52 mls @ 210 [facility]ls[facility] Stop: 05/04/25 12:14 Folic Acid 1 mg/ Syringe 10 mls @ 5 mls[facility] Stop: 05/04/25 12:14 Melatonin (Melatonin 3 Mg Tab) 3 mg PO HS PRN PRN Reason: Sleep Stop: 05/03/25 20:31 Nitroglycerin (Nitroglycerin Sl 0.4 Mg/Tab Tab) 0.4 mg SL Q5M PRN PRN Reason: Chest Pain Stop: 05/03/25 03:50 Ondansetron HCl (Ondansetron Inj 2 Mg/Ml 2 Ml Vial) 4 mg IV Q6H PRN PRN Reason: Nausea Stop: 05/03/25 03:50 Last Admin: 04/03/25 18:19 Dose: 4 mg
[2025-04-04] MEDS: FOLIC ACID 1 MG in SYRINGE 9.8 ML IV SCH (13:02)
[2025-04-04] MEDS: THIAMINE HCL 200 MG in SODIUM CHLORIDE 0.9% 50 ML IV SCH (13:02)
--- NOTE | 2025-04-04 14:32 | Ultrasound Report ---
BILATERAL LOWER EXTREMITY VENOUS DOPPLER HISTORY: r/o dvt COMPARISON STUDY: None FINDINGS: No evidence of DVT seen in bilateral lower extremities. IMPRESSION: No DVT seen. ACT 112: Negative or not required by law. Electronically signed by: Eric Watkins M.D. 04/04/2025 2:31 PM
--- NOTE | 2025-04-04 16:05 | XCELERA ---
[id number]
[2025-04-04] MEDS: MELATONIN 3 MG TAB PO PRN (20:45)
[2025-04-05 07:02] LABS: Hematocrit (blood only) 37.7 % (37.0-47.0); Hemoglobin 11.9 g/dl (12.0-16.0); Mean Corpuscular Hemoglobin 31.6 pg (25.0-34.0); Mean Corpuscular Volume 100.0 fL (80.0-100.0); Platelet Count 195 K/uL (130-400); RDW Standard Deviation 54.7 fL (36.4-46.3); Red Blood Count 3.77 M/uL (4.20-5.40); White Blood Count 5.95 K/ul (4.8-10.8)
[2025-04-05 07:17] LABS: Anion Gap 7.0 (3-11); Blood Urea Nitrogen 9.0 mg/dl (6-23); Calcium 9.3 mg/dl (8.6-10.3); Carbon Dioxide 29.0 mmol/L (21-32); Chloride 102.0 mmol/L (98-107); Creatinine Clr Calc Pharmacy 48.4 ml/min; Glucose 155.0 mg/dl (70-99(Fasting)); Magnesium 1.8 mg/dl (1.7-2.4); Potassium 3.9 mmol/L (3.5-5.1); Sodium 138.0 mmol/L (136-145)
--- NOTE | 2025-04-05 10:35 | Electrocardiogram Report ---
Test Reason : Blood Pressure : */* mmHG Vent. Rate : 91 BPM Atrial Rate : 91 BPM P-R Int : 232 ms QRS Dur : 104 ms QT Int : 384 ms P-R-T Axes : 47 -50 56 degrees QTcB Int : 472 ms Sinus rhythm with 1st degree A-V block Left axis deviation Incomplete right bundle branch block Possible Anterior infarct , age undetermined Abnormal ECG No previous ECGs available Confirmed by Anurag Daley ([id number]) on 04/05/2025 10:35:00 AM Referred By: REFERRED SELF Confirmed By: Anurag Daley
--- NOTE | 2025-04-05 12:37 | Hospitalist Progress Note ---
Date of Service April 05, 2025 Assessment & Plan (1) Dizziness: Plan: 79-year-old female with past medical history significant for osteoarthritis, generalized anxiety disorder not seeing doctors for many years and not taking any medications comes because of dizziness and nausea. Patient lives alone. Says she ambulates without support. Today felt very dizzy and nauseous . It seems subsided but came back. When nausea and dizziness returned it was very severe and she could not get up and move.. And she also had an episode of diarrhea. She called ambulance and came to the hospital. Currently she is feeling better. Nausea has improved. Currently denies any dizziness. Did not ambulate yet. But in the ER her oxygen saturation were dropping to 86%. On oxygen she is saturating okay. Patient has history of smoking. She says she smoked more than 1 pack a day for about 55 years and quit smoking about 6 to 7 years ago. No fevers. No headache. No blurred visions or double vision. No runny nose or sore throat. Appetite is down today. Denies any chest pain or shortness of breath. No cough. No abdominal pain. Micturating okay. Currently hemodynamics are okay. Patient states she has 2 daughters but says she is estranged and not in contact with them. Dizziness Nausea (found emesis and stool on couch when pt found at home) CT head negat. Currently symptoms seems improved however pt reports not eating anything in several days and did not want to eat this AM either, she plans to try for lunch If recurs will get CTA head and neck and MRI and consult neurology IV fluids Orthostatics UA - negative CT abd./pelvis - 1. No acute process within the abdomen or pelvis on unenhanced exam.2. Extensive colonic diverticulosis. No evidence for acute diverticulitis.3. Curvilinear radiodensity within the endometrial cavity. This is indeterminate but iatrogenic and correlation with procedural history is recommended. Stool pcr, c. diff - ordered - pending collection Monitor meds/telemetry PT OT prior to discharge Hypoxia Was 86% on room air Chest x-ray - interstitial markings which may be chronic in nature D-dimer elevated at 1850 Mild occasional wheezing on exam History of tobacco abuse, Possible underlying COPD Respiratory BioFire negative Emphysema on CT, poss. interstitial lung disease, will need outpt LFTs, pulm. follow up Nebs around the clock and as needed CT PE - No pulmonary emboli are identified. The heart is moderately enlarged. There is moderate aortic valvular calcification. Ascending aorta is mildly dilated, measuring 4 cm at the level the main pulmonary artery. There is extensive coronary artery calcification. No pericardial effusion. No pneumotho rax or pleural effusion is present. There is no consolidation to suggest pneumonia. Moderate upper lobe predominant emphysema is present. Subpleural biapical densities favor scarring. There is mild diffuse subpleural reticulation. which may represent superimposed interstitial lung disease. No consolidation to suggest pneumonia.There is no honeycombing. No suspicious pulmonary nodules are identified. The abdomen and pelvis CT will be reported separately. There is an old mild T12 compression fracture. LE doppler - negative for DVT 2 steps prior to discharge 04/04 - This AM Pt went to bathroom w/o oxygen. Became severely hypoxic, to 70s%, and extremely dyspneic. Received breathing treatment. Currently back on 2L of suppl. O2, cont to closely monitor on tele. Will also obtain echo Echo - Mild concentric LVH. No regional wall motion abnormalities noted. LV syst. function is normal. LV EF 55-60%. RV is normal in size and function. Aortic valve sclerosis mild, w/o significant aortic valvular stenosis. The proximal ascending aorta is mildly dilated, 4.2 cm. 04/05 Pt currently on 2L of suppl. O2 , says feeling weak and dizzy when getting up from bed. She only ate yesterday for the first time in past several days. Encouraged po intake. Pt does not have a PCP - will arrange appointment w/one prior to DC. [facility] liaison aware. PT/OT ordered DVT prophylaxis - Heparin subcu Disposition - Med/telemetry Full code. Admission and Anticipated Discharge Date Admission Date: April 03, 2025 Subjective Pt seen in follow up Presented for dizziness, found to be hypoxic. Per chart review - emesis and stool found on pt's couch when they came for the pt. She says she does not know how it happened but she is aware she had to be all cleaned up when she came to the hospital. Reports having poor appetite and not eating for days, yesterday ate for the first time. Still reports weak and dizzy when getting up from bed. Yesterday pt went to bathroom without oxygen and she became profoundly hypoxic and very short of breath. received breathing treatment and feeling ok soon after. CT PE obtained on admission - negat. for PE, negat. for PNA, + for emphysema. Pt states she is a former smoker. Ordered stool pcr - so far uncollected. CT abd pelvis - negat. Currently pt is sitting up in bed in NAD on 2L of suppl. O2. Says she does not have PCP - [facility] liaison notified. Pt has not seen a doctor for years. Review of Systems Review of Systems: All systems reviewed & are unremarkable except as noted in Subjective Physical Exam Physical Exam: General- WD/WN F in NAD Head- atraumatic Eyes- PERRL. Neck- supple, no JVD. Lungs- clear to auscultation mild occasional wheezing, no crackles Heart- regular rhythm; no murmur, no gallop. Abdomen- normal bowel sounds, soft, nontender, no distension Extremities- no pretibial edema, no erythema seen Neuro- alert, oriented, answers appropriately, speech fluent, moves extremities Results & Data Results & Data Vital Signs (Past 12 Hours) Vital Signs Temp Pulse Pulse Resp BP BP Pulse Ox 04/05/25 11:05 86 16 95 04/05/25 08:08 36.8 C 76 18 131/76 95 04/05/25 08:00 04/05/25 07:45 79 04/05/25 07:26 72 16 94 04/05/25 05:15 36.8 C 80 20 145/83 H 97 O2 Del Method O2 Flow Rate 04/05/25 11:05 Nasal Cannula 2 04/05/25 08:08 Nasal Cannula 04/05/25 08:00 Nasal Cannula 2 04/05/25 07:45 04/05/25 07:26 Nasal Cannula 2 04/05/25 05:15 Nasal Cannula 2 Laboratory Results 04/05/25 Range/Units 06:34 WBC 5.95 (4.8-10.8) K/ul RBC 3.77 L (4.20-5.40) M/uL Hgb 11.9 L (12.0-16.0) g/dl Hct 37.7 (37.0-47.0) % MCV 100.0 (80.0-100.0) fL MCH 31.6 (25.0-34.0) pg MCHC 31.6 L (32.0-36.0) g/dL RDW Std Deviation 54.7 H (36.4-46.3) fL RDW Coeff of Deloris 14.7 H (11.5-14.5) % Plt Count 195 (130-400) K/uL MPV 10.4 (9.4-12.4) fL Sodium 138 (136-145) mmol/L Potassium 3.9 (3.5-5.1) mmol/L Chloride 102 (98-107) mmol/L Carbon Dioxide 29 (21-32) mmol/L Anion Gap 7 (3-11) BUN 9 (6-23) mg/dl Creatinine 0.77 (0.6-1.2) mg/dl Est Cr Clr Drug Dosing 48.4 ml/min eGFR 77.45 BUN/Creatinine Ratio 11.7 (10-20) Glucose 155 H (70-99(Fasting)) mg/dl Calcium 9.3 (8.6-10.3) mg/dl Phosphorus 3.3 (2.5-4.9) mg/dl Magnesium 1.8 (1.7-2.4) mg/dl Medications Administered Current Inpatient Medications Acetaminophen (Acetaminophen 325 Mg Tab) 650 mg PO Q4H PRN PRN Reason: Pain or Fever Stop: 05/03/25 03:50 Albuterol (Albut/Ipratrop 3mg/0.5mg Neb 3 Ml Vial) 3 ml NEB QIDR RITA; Protocol Stop: 05/03/25 06:59 Last Admin: 04/05/25 11:05 Dose: 3 ml Albuterol (Albut/Ipratrop 3mg/0.5mg Neb 3 Ml Vial) 3 ml NEB Q6R PRN; Protocol PRN Reason: Shortness Of Breath Or Wheezing Stop: 05/03/25 03:50 Heparin Sodium (Porcine) (Heparin Sod 5,000 Unit/0.5 Ml Vial) 5,000 units SQ Q12 RITA Stop: 05/03/25 08:59 Last Admin: 04/05/25 09:48 Dose: 5,000 units Thiamine HCl 200 mg/ Sodium (Chloride) 52 mls @ 210 mls/hr IV QAM RITA Stop: 05/04/25 12:29 Last Infusion: 04/05/25 10:09 Dose: Infused Folic Acid 1 mg/ Syringe 10 mls @ 5 mls/min IV QAM RITA Stop: 05/04/25 12:29 Last Admin: 04/05/25 09:48 Dose: 5 mls/min Melatonin (Melatonin 3 Mg Tab) 3 mg PO HS PRN PRN Reason: Sleep Stop: 05/03/25 20:31 Last Admin: 04/04/25 20:45 Dose: 3 mg Nitroglycerin (Nitroglycerin Sl 0.4 Mg/Tab Tab) 0.4 mg SL Q5M PRN PRN Reason: Chest Pain Stop: 05/03/25 03:50 Ondansetron HCl (Ondansetron Inj 2 Mg/Ml 2 Ml Vial) 4 mg IV Q6H PRN PRN Reason: Nausea Stop: 05/03/25 03:50 Last Admin: 04/03/25 18:19 Dose: 4 mg
[2025-04-05] MEDS: MAGNESIUM SULFATE / D5W 1 GM/100 ML BAG IV ONE (13:33)
[2025-04-06 08:28] LABS: Hematocrit (blood only) 36.1 % (37.0-47.0); Hemoglobin 11.8 g/dL (12.0-16.0); Mean Corpuscular Hemoglobin 32.5 pg (25.0-34.0); Mean Corpuscular Volume 99.4 fL (80.0-100.0); Platelet Count 198 K/uL (130-400); RDW Standard Deviation 53.2 fL (36.4-46.3); Red Blood Count 3.63 M/uL (4.20-5.40); White Blood Count 6.16 K/ul (4.8-10.8)
[2025-04-06 08:45] LABS: Anion Gap 6.0 (3-11); Blood Urea Nitrogen 8.0 mg/dl (6-23); Calcium 9.3 mg/dl (8.6-10.3); Carbon Dioxide 31.0 mmol/L (21-32); Chloride 102.0 mmol/L (98-107); Creatinine Clr Calc Pharmacy 55.8 ml/min; Glucose 101.0 mg/dl (70-99(Fasting)); Magnesium 1.9 mg/dl (1.7-2.4); Potassium 4.0 mmol/L (3.5-5.1); Sodium 139.0 mmol/L (136-145)
[2025-04-06 11:05] VITALS: RESP 20
[2025-04-06 11:15] VITALS: BP 169/95; PULSE 78; TEMP 97.3; O2SAT 91
--- NOTE | 2025-04-06 12:54 | Discharge Summary ---
Discharge Summary Date of Service April 06, 2025 Principal Dx & Hospital Course #1 = Principal Diagnosis (1) Dizziness: 79-year-old female with past medical history significant for osteoarthritis, generalized anxiety disorder, 55 pack year history of smoking, not seeing doctors for many years and not taking any medications presents with dizziness. Patient lives alone. She was hypoxic. CT chest showing emphysema and possibly ILD. She is likely c/o dizziness due to hypoxia with ambulation. She likely has underlying undiagnosed COPD and possibly ILD. She was not in acute COPD exacerbation. 2 Step done, recommending 2L O2. Home O2 ordered. Albuterol HFA and advair ordered for discharge. she feels well today and wishes to go home. she ambulates independently. BP has been slightly elevated during admission and she will be sent on norvasc 5mg daily as well. She will be set up with a PCP and pulmonology appt upon discharge. Labs acceptable other than very mild anemia at 11.9. Recommended she f/u with her new PCP with repeat CBC in a few weeks. Notes For Next Care Provider Medication Changes From Visit advair and albuterol hfa norvasc Admission HPI Per Admitting Provider 79-year-old female with past medical history significant for osteoarthritis, generalized anxiety disorder not seeing doctors for many years and not taking any medications comes because of dizziness and nausea. Patient lives alone. Says she ambulates without support. Today felt very dizzy and nauseous . It seems subsided but came back. When nausea and dizziness returned it was very severe and she could not get up and move.. And she also had an episode of diarrhea. She called ambulance and came to the hospital. Currently she is feeling better. Nausea has improved. Currently denies any dizziness. Did not ambulate yet. But in the ER her oxygen saturation were dropping to 86%. On oxygen she is saturating okay. Patient has history of smoking. She says she smoked more than 1 pack a day for about 55 years and quit smoking about 6 to 7 years ago. No fevers. No headache. No blurred visions or double vision. No runny nose or sore throat. Appetite is down today. Denies any chest pain or shortness of breath. No cough. No abdominal pain. Micturating okay. Currently hemodynamics are okay. Patient states she has 2 daughters but says she is estranged and not in contact with them. Past medical history. As mentioned above. Past surgical history. Denies any surgeries. Social history. Quit smoking about 6 to 7 years ago. Smoked more than a pack a day for about 55 years.. Currently not drinking alcohol. Family history. Brother had colon cancer per records. Discharge Exam Vitals and labs reviewed General: Well appearing, NAD HEENT: EOMI, PERRLA Neck: Supple Cardiac: RRR no rubs gallops or murmurs Lungs: diminished otherwise clear. No distress Abd: S NT ND BS positive : Deffered MSK: Full ROM. No obvious deformities Ext: No Edema cyanosis Skin: Warm, Dry Neuro: AOx3 No focal deficits. Psych: Normal Mood Updated Medication List Medication Instructions Recorded Confirmed Type albuterol sulfate 90 mcg/actuation 1 inh inhalation Q6H PRN shortness 04/06/25 Rx aerosol inhaler of breath or wheezing #6.7 grams amlodipine 5 mg tablet (Norvasc) 5 mg PO DAILY #30 tabs 04/06/25 Rx fluticasone 250 mcg-salmeterol 50 1 inh inhalation BID #60 ea 04/06/25 Rx mcg/dose blistr powdr for inhalation (Advair Diskus) Hospital Stay Data Consultations 04/03/25 00:53 ED Decision to Admit Stat Diagnostic Imagining Performed 04/02/25 22:07 CT head/brain wo con Stat 04/03/25 08:22 CT angio chest PE protocol Urgent 04/03/25 08:23 CT abd pelvis wo con Routine 04/04/25 12:12 US venous doppler LE BI Routine Pending Results Patient Have Any Pending Studies at Discharge: No Discharge Instructions Given to Patient (Per Discharging Provider) Please follow up with your PCP and schedule an appt with a acoustic intelligence specialist Total Time Total Time Spent Total Time Spent (In Minutes): 43
== END 2025-04-06 13:48 | disposition home health service (06) | DRG 149 ==
LOC: ED 21:57 → 2N 04-03 01:45 → SUATTDRO 04-03 01:45 → 2N 04-03 03:30